=== PATIENT | male | born 1965 | race Caucasian/White ===

== ENCOUNTER 2016-10-10 19:49 | Outpatient (CLI) | payer OTHER | END 2016-10-10 19:50 | disposition critical access hospital (66) | LOC: EMS 19:49 | PROVIDERS: ATTEND Surgery | DX: R51 Headache (principal); M54.2 Cervicalgia; S09.90XA Unspecified injury of head, initial encounter; W01.198A Fall on same level from slipping, tripping and stumbling with subsequent striking against other object, initial encounter; Y92.008 Other place in unspecified non-institutional (private) residence as the place of occurrence of the external cause | CPT/HCPCS: A0425; A0429 ==

== ENCOUNTER 2016-10-10 20:19 | Emergency (ER) | payer OTHER ==
--- NOTE | 2016-10-10 22:08 | CT Preliminary Report ---
Exam: CT Head W/O IMPRESSION: 1. Right parietal scalp hematoma. 2. Otherwise normal head CT. [facility] SITE ID: [id number]
--- NOTE | 2016-10-10 22:11 | CT Report ---
EXAM: CT HEAD EXAM DATE: 10/10/2016 09:51 PM. CLINICAL HISTORY: Head injury. COMPARISON: 06/25/2006. TECHNIQUE: Multiaxial CT images were obtained from the foramen magnum to the vertex. IV contrast: Non e. Reformats: Coronal. In accordance with CT protocol optimization, one or more of the following dose reduction techniques w ere utilized for this exam: automated exposure control, adjustment of mA and/or KV based on patient s ize, or use of iterative reconstructive technique. FINDINGS: Parenchyma: No intraparenchymal hemorrhage. There is a stable 6 mm low-density focus in left basal ga nglia region, likely a dilated perivascular space. No evidence of mass, midline shift, or CT findings of infarction. Marcelino-white differentiation is distinct. Extraaxial Spaces: Normal for age. No subdural or epidural collections identified. Ventricles: Normal in size and position. Sinuses: Imaged paranasal sinuses, orbits, and mastoids show no significant abnormality. Bones: No evidence of fracture or calvarial defect. Other: There is a right parietal scalp hematoma.. IMPRESSION: 1. Right parietal scalp hematoma. 2. Otherwise normal head CT. [facility] Referring Provider Line: [phone] SITE ID: [id number]
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
[2016-10-10 22:30] VITALS: BP 139/92
[2016-10-10] MEDS ORDERED: LIDOCAINE 2%-EPI 1:100000 20 ML MDV ONE (22:33)
== END 2016-10-10 22:53 | disposition home or self-care (01) ==
LOC: EDUNIT# → ED 20:19
DX: S01.01XA Laceration without foreign body of scalp, initial encounter (principal); W03.XXXA Other fall on same level due to collision with another person, initial encounter; Y92.019 Unspecified place in single-family (private) house as the place of occurrence of the external cause; I10 Essential (primary) hypertension; Z86.73 Personal history of transient ischemic attack (TIA), and cerebral infarction without residual deficits; Z87.820 Personal history of traumatic brain injury; Z87.442 Personal history of urinary calculi; K21.9 Gastro-esophageal reflux disease without esophagitis
CPT/HCPCS: 12002; 70450; 99283; 99284

== ENCOUNTER 2019-08-04 08:27 | Outpatient (CLI) | payer OTHER ==
[2019-08-04] MEDS ORDERED: BUFFERED LIDOCAINE 10 ML SYRINGE ONE (08:35)
[2019-08-04] MEDS ORDERED: GADOBUTROL 7.5 MMOL/7.5 ML VIAL ONE (08:36)
[2019-08-04] MEDS ORDERED: iohexoL-240 10 ML VIAL IVP ONE (09:48)
[2019-08-04] MEDS ORDERED: GADOBUTROL 7.5 MMOL/7.5 ML VIAL IVP ONE (09:49)
[2019-08-04] MEDS ORDERED: BUFFERED LIDOCAINE 10 ML SYRINGE IU ONE (09:50)
--- NOTE | 2019-08-04 10:21 | XRAY Report ---
Reason: RIGHT SHOULDER PAIN Procedure Date: 08/04/2019 Accession Number: [id number] / [id number] Procedure: FL - Arthrogram Needle Placement CPT Code: Final Report FULL RESULT: PROCEDURE: Arthrogram Needle Placement INDICATIONS: RIGHT SHOULDER PAIN TECHNIQUE: After obtaining informed consent the right anterior shoulder joint was prepared and draped in sterile fashion and anesthetized with 1% lidocaine. Utilizing fluoroscopic guidance a 22-gauge needle was advanced into the shoulder joint space, positioning was confirmed with iodinated nonionic contrast, and a dilute gadolinium/saline solution was instilled. COMPARISON: None. FINDINGS: Successful shoulder joint injection for MR arthrography. IMPRESSION: Appropriate needle tip localization, confirmation of intra-articular injection, and completion of the study with a dilute gadolinium/saline intra-articular injection. Reviewed by: Yann Diaz MD on 08/04/2019 10:20 AM PDT Approved by: Yann Diaz MD on 08/04/2019 10:20 AM PDT Station ID: [id number]
--- NOTE | 2019-08-04 14:15 | MRI Report ---
PROCEDURE: Arthrogram Shoulder RT INDICATIONS: RIGHT SHOULDER PAIN CONTRAST: 12 mL of diluted intra-articular gadolinium contrast. TECHNIQUE: After the administration of 12 mL of dilute intra-articular Gadolinium contrast, oblique coronal T1 a nd T2 spin echo with fat saturation, oblique sagittal T1 spin echo with and without fat saturation, o blique sagittal T2 fast spin echo with fat saturation, axial T1 spin echo with fat saturation through the shoulder. COMPARISON: None. FINDINGS: Image quality: Diagnostic. Patient motion is noted during the study.. Rotator cuff: The there is tendinosis and low to moderate grade articular and bursal surface partial -thickness tear involving distal supraspinatus and infraspinatus at their insertions on greater tuber osity extending to musculotendinous junction. No full-thickness rotator cuff tendon rupture. Distal s ubscapularis tendon is intact. Mild supraspinatus muscle atrophy on sagittal images. Bones and bursae: No bone marrow contusions or fractures. Cyhg-mh-[id number] acromioclavicular joint a nd glenohumeral joint osteoarthritic changes are seen. Capsule and soft tissues: There is signal abnormality and contrast extension and posterior labrum ext ending from 8 to 11:00 position concerning for posterior labral tear. The glenohumeral ligaments appe ar intact. The long head of the biceps tendon demonstrates normal location and morphology. The rota tor interval appears normal, without fibrosis. The coracohumeral ligament is of normal thickness. N o intra-articular bodies. IMPRESSION: 1. Tendinosis and moderate grade articular and bursal surface partial-thickness tear involving distal supraspinatus and infraspinatus. Mild supraspinatus muscle atrophy. 2. Mild to moderate acromioclavicular joint and glenohumeral joint osteoarthritis. 3. Suggestion of posterior labral tear extending from 8 11:00 position. Reviewed by: Antonio Pathak MD on 08/04/2019 2:13 PM PDT Approved by: Antonio Pathak MD on 08/04/2019 2:13 PM PDT Station ID: [id number]
== END 2019-08-04 08:28 | disposition home or self-care (01) ==
LOC: DI 08:27
PROVIDERS: ATTEND Family Medicine
DX: S46.011A Strain of muscle(s) and tendon(s) of the rotator cuff of right shoulder, initial encounter (principal); M25.811 Other specified joint disorders, right shoulder; M19.011 Primary osteoarthritis, right shoulder
CPT/HCPCS: 23350; 73222; 77002; A9585

== ENCOUNTER 2020-01-04 09:47 | Outpatient (CLI) | payer OTHER | END 2020-01-04 09:48 | disposition critical access hospital (66) | LOC: EMS 09:47 | PROVIDERS: ATTEND Surgery | DX: R40.4 Transient alteration of awareness (principal); R51.9 Headache, unspecified; R20.0 Anesthesia of skin | CPT/HCPCS: A0425; A0433 ==

== ENCOUNTER 2020-01-04 10:12 | Inpatient (IN) | payer OTHER ==
[2020-01-04] MEDS ORDERED: FENTANYL IV STA (10:21)
[2020-01-04] MEDS ORDERED: SODIUM CHLORIDE 0.9% IV STA (10:21)
[2020-01-04] MEDS ORDERED: IOVERSOL 320 100 ML VIAL IVP ONE ×2 (10:30→13:22)
--- NOTE | 2020-01-04 10:48 | XRAY Report ---
PROCEDURE: Chest for Line Placement INDICATIONS: CHEST PAIN/ NG AND OG TUBE PLACEMENT TECHNIQUE: One view of the chest was acquired. COMPARISON: None FINDINGS: Surgical changes and devices: Nasogastric tube is present with distal tip projecting below the hemidi aphragms. Lungs and pleura: No pleural effusions or pneumothorax. Lungs are clear. Mediastinum: Mediastinal contours appear normal. Heart size is mildly prominent. Bones and chest wall: No suspicious bony lesions. Overlying soft tissues appear unremarkable. IMPRESSION: Nasogastric tube placement as above. Reviewed by: Janeth Venegas MD on 01/04/2020 9:47 AM [facility] Approved by: Janeth Venegas MD on 01/04/2020 9:47 AM [facility] Station ID: [id number]
--- NOTE | 2020-01-04 10:49 | ED Physician Documentation ---
History of Present Illness - Stated complaint Stated Complaint: ALOC - Chief complaint Chief Complaint: Neuro - History obtained from History obtained from: Patient - Additonal information Additional information: 54-year-old man with past medical history of high blood pressure, TBI with 8 concussions in the past, bipolar disorder on Abilify Adderall Lamictal, no history of seizure disorder presents with [place] [employer] [place] EMS to be called. On arrival on scene EMS stated that he had rapid deterioration in mental status requiring intubation. Fingerstick normal in the field. In the ED patient is intubated with vecuronium on board. Collateral information from and EMS.Further history limited by patient acuity Review of Systems Unable to obtain: Unresponsive PD PAST MEDICAL HISTORY - Past Medical History Cardiovascular: Hypertension Respiratory: None Endocrine/Autoimmune: None GI: GERD : Kidney stones HEENT: None Psych: Depression Musculoskeletal: None Derm: None - Past Surgical History Past Surgical History: Yes - Present Medications Home Medications: Ambulatory Orders Medication Instructions Recorded Confirmed Alfuzosin HCl [Alfuzosin HCl ER] 10 mg PO DAILY 10/10/16 01/04/20 Dextroamphetamine/Amphetamine 1 tab PO DAILY 10/10/16 01/04/20 [Adderall 30 mg Tablet] Omeprazole [PriLOSEC] 40 mg PO QDAC 10/10/16 01/04/20 Eszopiclone [Lunesta] 3 mg PO QPM PRN 01/04/20 01/04/20 Oxybutynin Chloride [Ditropan Xl] 5 mg PO DAILY 01/04/20 01/04/20 Propranolol ER [Inderal LA] 80 mg PO DAILY 01/04/20 01/04/20 - Allergies Allergies/Adverse Reactions: Allergies Allergy/AdvReac Type Severity Reaction Status Date / Time No Known Drug Allergies Allergy Verified 10/10/16 20:28 - Social History Does the pt smoke?: No Smoking Status: Never smoker Does the pt drink ETOH?: No Does the pt have substance abuse?: No - Immunizations Immunizations are current?: Yes - POLST Patient has POLST: No PD ED PE NORMAL - Vitals Vital signs reviewed: Yes - General General: Other (intubated, sedated, paralyzed) - HEENT HEENT: Atraumatic, PERRL, EOMI - Neck Neck: Supple, no meningeal sign, No JVD - Cardiac Cardiac: RRR - Abdomen Abdomen: Non tender, Non distended - Male Male : Other (damian in place) - Rectal Rectal: Other (normal TOÑO) - Back Back: No spinal TTP - Derm Derm: Normal color, Warm and dry - Extremities Extremities: No deformity - Neuro Neuro: Other (intubated, sedated, paralyzed) - Psych Psych: Other (intubated) Results - Vitals Vitals: Vital Signs - 24 hr 01/04/20 01/04/20 01/04/20 10:13 10:19 10:30 Temperature 36.3 C L 36.4 C L Heart Rate 64 61 59 L Respiratory 18 20 13 Rate Blood Pressure 153/130 H 153/130 H O2 Saturation 100 100 100 01/04/20 01/04/20 01/04/20 11:09 11:29 11:32 Temperature 36.9 C 36.9 C 36.9 C Heart Rate 62 61 77 Respiratory 18 19 18 Rate Blood Pressure 171/100 H 170/102 H 192/96 H O2 Saturation 100 100 93 01/04/20 01/04/20 11:45 11:57 Temperature 36.8 C Heart Rate 74 73 Respiratory 18 18 Rate Blood Pressure 165/98 H 150/98 H O2 Saturation 91 L 92 Oxygen O2 Source Mechanical ventilator - EKG (time done) 1015 Rate: Rate (enter#) (60) Rhythm: NSR [place]: Normal Intervals: Prolonged IN, 1st degree AVB QRS: Normal Ischemia: Normal ST segments - Labs Labs: Laboratory Tests 01/04/20 01/04/20 01/04/20 10:28 11:03 11:14 WBC 8.4 RBC 4.89 Hgb 13.8 L Hct 42.7 MCV 87.3 MCH 28.2 MCHC 32.3 RDW 13.2 Plt Count 312 MPV 9.7 Neut # (Auto) 6.0 Lymph # (Auto) 1.5 [place] # (Auto) 0.7 Eos # (Auto) 0.2 Baso # (Auto) 0.0 Absolute Nucleated RBC 0.00 Nucleated RBC % 0.0 Bld Gas Analysis Time 1108 Sample Site LEFT RADIAL ABG pH 7.36 ABG pCO2 40 ABG pO2 254 H* ABG HCO3 22.1 ABG Total CO2 23.4 ABG O2 Saturation 100 H ABG Base Excess -3.0 L Dejon Test POSITIVE Respiration Rate 18 O2 Delivery Device VENTILATOR Vent Mode SIMV FiO2 100.00 Tidal Volume 500 PEEP 5 Pressure Support Vent 12 Sodium Potassium Chloride Carbon Dioxide Anion Gap BUN Creatinine Estimated GFR (MDRD) Glucose Calcium Total Bilirubin AST ALT Alkaline Phosphatase Troponin I High Sens Total Protein Albumin Globulin Albumin/Globulin Ratio Lipase TSH Nasal Adenovirus (PCR) Nasal B. parapertussis DNA (PCR) Nasal Coronavir 229E PCR Nasal Coronavir HKU1 PCR Nasal Coronavir NL63 PCR Nasal Coronavir OC43 PCR Nasal Enterovir/Rhinovir PCR Nasal Influenza B PCR Nasal Influenza A PCR Nasal Parainfluen 1 PCR Nasal Parainfluen 2 PCR Nasal Parainfluen 3 PCR Nasal Parainfluen 4 PCR Nasal RSV (PCR) Nasal B.pertussis DNA PCR Nasal C.pneumoniae (PCR) Enzo Human Metapneumo PCR Nasal M.pneumoniae (PCR) Nasal SARS-CoV-2 (PCR) Salicylates Urine Opiates Screen NEGATIVE Ur Oxycodone Screen NEGATIVE Urine Methadone Screen NEGATIVE Ur Propoxyphene Screen NEGATIVE Acetaminophen Ur Barbiturates Screen NEGATIVE Ur Tricyclics Screen NEGATIVE Ur Phencyclidine Scrn NEGATIVE Ur Amphetamine Screen NEGATIVE U Methamphetamines Scrn NEGATIVE U Benzodiazepines Scrn NEGATIVE Urine Cocaine Screen NEGATIVE U Cannabinoids Screen NEGATIVE Ethyl Alcohol 01/04/20 01/04/20 01/04/20 11:14 11:14 11:14 WBC RBC Hgb Hct MCV MCH MCHC RDW Plt Count MPV Neut # (Auto) Lymph # (Auto) [place] # (Auto) Eos # (Auto) Baso # (Auto) Absolute Nucleated RBC Nucleated RBC % Bld Gas Analysis Time Sample Site ABG pH ABG pCO2 ABG pO2 ABG HCO3 ABG Total CO2 ABG O2 Saturation ABG Base Excess Dejon Test Respiration Rate O2 Delivery Device Vent Mode FiO2 Tidal Volume PEEP Pressure Support Vent Sodium 135 Potassium 4.9 Chloride 104 Carbon Dioxide 21 Anion Gap 10.0 BUN 15 Creatinine 0.9 Estimated GFR (MDRD) 88 L Glucose 118 H Calcium 8.6 Total Bilirubin 0.8 AST 18 ALT 16 Alkaline Phosphatase 67 Troponin I High Sens 8.2 Total Protein 7.1 Albumin 3.7 Globulin 3.4 Albumin/Globulin Ratio 1.1 Lipase 40 TSH Nasal Adenovirus (PCR) Nasal B. parapertussis DNA (PCR) Nasal Coronavir 229E PCR Nasal Coronavir HKU1 PCR Nasal Coronavir NL63 PCR Nasal Coronavir OC43 PCR Nasal Enterovir/Rhinovir PCR Nasal Influenza B PCR Nasal Influenza A PCR Nasal Parainfluen 1 PCR Nasal Parainfluen 2 PCR Nasal Parainfluen 3 PCR Nasal Parainfluen 4 PCR Nasal RSV (PCR) Nasal B.pertussis DNA PCR Nasal C.pneumoniae (PCR) Enzo Human Metapneumo PCR Nasal M.pneumoniae (PCR) Nasal SARS-CoV-2 (PCR) Salicylates < 6.0 Urine Opiates Screen Ur Oxycodone Screen Urine Methadone Screen Ur Propoxyphene Screen Acetaminophen < 10 L Ur Barbiturates Screen Ur Tricyclics Screen Ur Phencyclidine Scrn Ur Amphetamine Screen U Methamphetamines Scrn U Benzodiazepines Scrn Urine Cocaine Screen U Cannabinoids Screen Ethyl Alcohol 6.4 01/04/20 01/04/20 11:14 11:30 WBC RBC Hgb Hct MCV MCH MCHC RDW Plt Count MPV Neut # (Auto) Lymph # (Auto) [place] # (Auto) Eos # (Auto) Baso # (Auto) Absolute Nucleated RBC Nucleated RBC % Bld Gas Analysis Time Sample Site ABG pH ABG pCO2 ABG pO2 ABG HCO3 ABG Total CO2 ABG O2 Saturation ABG Base Excess Dejon Test Respiration Rate O2 Delivery Device Vent Mode FiO2 Tidal Volume PEEP Pressure Support Vent Sodium Potassium Chloride Carbon Dioxide Anion Gap BUN Creatinine Estimated GFR (MDRD) Glucose Calcium Total Bilirubin AST ALT Alkaline Phosphatase Troponin I High Sens Total Protein Albumin Globulin Albumin/Globulin Ratio Lipase TSH 3.85 Nasal Adenovirus (PCR) NOT DETECTED Nasal B. parapertussis DNA (PCR) NOT DETECTED Nasal Coronavir 229E PCR NOT DETECTED Nasal Coronavir HKU1 PCR NOT DETECTED Nasal Coronavir NL63 PCR NOT DETECTED Nasal Coronavir OC43 PCR NOT DETECTED Nasal Enterovir/Rhinovir PCR NOT DETECTED Nasal Influenza B PCR NOT DETECTED Nasal Influenza A PCR NOT DETECTED Nasal Parainfluen 1 PCR NOT DETECTED Nasal Parainfluen 2 PCR NOT DETECTED Nasal Parainfluen 3 PCR NOT DETECTED Nasal Parainfluen 4 PCR NOT DETECTED Nasal RSV (PCR) NOT DETECTED Nasal B.pertussis DNA PCR NOT DETECTED Nasal C.pneumoniae (PCR) NOT DETECTED Enzo Human Metapneumo PCR NOT DETECTED Nasal M.pneumoniae (PCR) NOT DETECTED Nasal SARS-CoV-2 (PCR) NOT DETECTED Salicylates Urine Opiates Screen Ur Oxycodone Screen Urine Methadone Screen Ur Propoxyphene Screen Acetaminophen Ur Barbiturates Screen Ur Tricyclics Screen Ur Phencyclidine Scrn Ur Amphetamine Screen U Methamphetamines Scrn U Benzodiazepines Scrn Urine Cocaine Screen U Cannabinoids Screen Ethyl Alcohol PD MEDICAL DECISION MAKING - ED course Complexity details: reviewed results, re-evaluated patient, d/w family ED course: 54-year-old man with past medical history of bipolar disorder presented with acute episode of dizziness with altered mental status requiring intubation by EMS for acute respiratory failure. Patient stable in the ED Without apparent source of acute loss of consciousness. No PE on CT, no head bleed. Will admit to ICU for further evaluation. - Critical Care Time(min): 30 Comments: I have personally performed a history, physical exam, and my own medical decision making. Upon my evaluation, this patient had a high probability of imminent or life- threatening deterioration due to respiratory failure, which required my direct attention, intervention, and personal management. I have personally provided 30 minutes of critical care time exclusive of time spent on separately billable procedures. Time includes review of laboratory data, radiology results, discussion with consultants, and monitoring for potential decompensation. Interventions were performed as documented above. 01/04/20 8:20pm Time Includes: Direct patient care, Review records, Reassess patient, Coordinate care, Medical consult, Family consult for tx dec Data interpretation: Labs, Pulse ox, CXR Departure - Departure Disposition: 66 [facility] DC/Xfer Clinical Impression: Dizziness, Numbness, Respiratory failure Condition: Stable Discharge Date/Time: 01/04/20 12:45
[2020-01-04] MEDS ORDERED: fentaNYL 2,500 MCG/250 ML 2,500 MCG/250 ML BAG IV SCH ×2 (11:00→11:09)
--- NOTE | 2020-01-04 11:05 | CT Report ---
PROCEDURE: HEAD WO INDICATIONS: acute AMS TECHNIQUE: Noncontrast 4.5 mm thick angled axial sections acquired from the foramen magnum to the vertex. For r adiation dose reduction, the following was used: automated exposure control, adjustment of mA and/or kV according to patient size. COMPARISON: None. FINDINGS: Image quality: Excellent. CSF spaces: Basal cisterns are patent. No extra-axial fluid collections. Ventricles are normal in size and shape. Brain: No midline shift. No intracranial masses or hemorrhage. Marcelino-white matter interface is norm al. Skull and face: Calvarium and visualized facial bones are intact, without suspicious lesions. Sinuses: Visualized sinuses and mastoids are clear. There is swelling of the nasal turbinates with significant obliteration of the nasal passages. IMPRESSION: 1. Diffuse swelling of the nasal turbinates results in significant obliteration of the nasal passages . 2. Unremarkable brain parenchyma. No evidence of acute stroke, hemorrhage, or mass. Reviewed by: Anibal Velazquez MD on 01/04/2020 11:04 AM [facility] Approved by: Anibal Velazquez MD on 01/04/2020 11:04 AM PST Station ID: [id number]
--- NOTE | 2020-01-04 11:14 | CT Report ---
PROCEDURE: ANGIO CHEST W/WO INDICATIONS: r/o PE CONTRAST: IV CONTRAST: Optiray 320 ml: 100 PO CONTRAST: *NO PO CONTRAST TECHNIQUE: After the administration of intravenous contrast, 2 mm thick sections acquired from the pulmonary api yazmin to the posterior costophrenic angles. 3-dimensional maximum intensity projection (MIP) coronal a nd sagittal reformats were then acquired through the thorax. For radiation dose reduction, the follow ing was used: automated exposure control, adjustment of mA and/or kV according to patient size. COMPARISON: None FINDINGS: Image quality: Excellent. Pulmonary arteries: Pulmonary arteries are normal in size, and demonstrate no intraluminal filling d efects to suggest central pulmonary embolism. Lungs and pleura: Patchy, mild left basilar opacity is present, slightly less prominent on the right base. No pleural effusions or pneumothorax. Central and peripheral airways are patent. Mediastinum: Heart size is normal, without pericardial effusion. No mediastinal or hilar adenopathy . Thoracic aorta is normal in caliber and enhancement. Esophagus is normal in caliber, without hiat al hernia. Endotracheal and nasogastric tubes are present. Bones and chest wall: No suspicious bony lesions. Ribs and thoracic spine appear intact throughout. The thyroid is normal. No axillary or supraclavicular adenopathy. Abdomen: Nonobstructing right renal calcification. Otherwise, visualized upper abdominal solid orga ns appear normal in the early arterial phase of enhancement. IMPRESSION: 1. Bibasilar opacities, left greater than right. While this could represent dependent changes, deve loping pneumonia cannot be excluded. 2. No pulmonary embolism. Reviewed by: Janeth Venegas MD on 01/04/2020 10:12 AM [facility] Approved by: Janeth Venegas MD on 01/04/2020 10:12 AM [facility] Station ID: [id number]
[2020-01-04 11:16] LABS: BASOPHILS % (AUTO) 0.5 %; EOSINOPHILS # (AUTO) 0.2 10^3/uL (0.0-0.7); EOSINOPHILS % (AUTO) 1.8 %; HGB - HEMOGLOBIN 13.8 g/dL (14.0-18.0); LYMPHOCYTES # (AUTO) 1.5 10^3/uL (1.5-3.5); LYMPHOCYTES % (AUTO) 18.1 %; MEAN CORPUSCULAR HEMOGLOBIN 28.2 pg (27.0-31.0); MEAN CORPUSCULAR HGB CONC 32.3 g/dL (32.0-36.0); MEAN CORPUSCULAR VOLUME 87.3 fL (80.0-94.0); MEAN PLATELET VOLUME 9.7 fL (7.4-11.4); MONOCYTES # (AUTO) 0.7 10^3/uL (0.0-1.0); MONOCYTES % (AUTO) 8.1 %; NEUTROPHILS % (AUTO) 70.9 %; PLT - PLATELET COUNT 312 10^3/uL (130-450); RED BLOOD COUNT 4.89 10^6/uL (4.70-6.10); RED CELL DISTRIBUTION WIDTH 13.2 % (12.0-15.0); WHITE BLOOD COUNT 8.4 x10^3/uL (4.8-10.8)
[2020-01-04 11:16] LABS: ABG HCO3 22.1 mmol/L (22.0-26.0); ABG OXYGEN SATURATION 100 % (94-98); ABG PCO2 40 mmHg (34-45); ABG PH 7.36 (7.35-7.45); ABG TCO2 23.4 MMOL/L (21.0-29.0); ALLEN TEST POSITIVE
[2020-01-04 11:21] LABS: ABG PO2 254 mmHg (80-100)
[2020-01-04 11:39] LABS: ACETAMINOPHEN < 10 ug/mL (10-30); SALICYLATE < 6.0 mg/dL
--- NOTE | 2020-01-04 11:40 | CT Report ---
PROCEDURE: Abdomen/Pelvis W INDICATIONS: acute AMS/unresponsive CONTRAST: IV CONTRAST: Optiray 320 ml: 100 PO CONTRAST: *NO PO CONTRAST TECHNIQUE: After the administration of weight appropriate dose of intravenous contrast, 5 mm thick sections acqu ired from the diaphragms to the symphysis. 5 mm thick coronal and sagittal reformats were acquired. For radiation dose reduction, the following was used: automated exposure control, adjustment of mA and/or kV according to patient size. COMPARISON: None. FINDINGS: Image quality: Excellent. ABDOMEN: Lung bases: Patchy bibasilar atelectasis. Heart size is normal. Please see dedicated report of the c hest for further details. Solid organs: Liver and spleen are normal in size and late arterial phase enhancement. Gallbladder is unremarkable. Biliary system is non dilated. Pancreas enhances normally. No adrenal nodules. K idneys demonstrate normal size and enhancement, without hydronephrosis. Bilateral nonobstructing neph roliths measuring approximately 2 mm on the right and 6 cm on the left. Course and caliber of the geovani ateral ureters are unremarkable. Peritoneum and bowel: Nasogastric tube is in place with the distal tip noted within the distal gastr ic antrum. Bowel loops demonstrate normal wall thickness and caliber. No free fluid or air. Nodes and vessels: No retroperitoneal or mesenteric adenopathy by size criteria. Aorta and inferior vena cava are normal in size. Miscellaneous: No ventral hernias. PELVIS: Genitourinary: Urinary bladder is decompressed by a Cabezas catheter. Miscellaneous: No pelvic adenopathy. Small bilateral fat-containing inguinal hernias. Bones: No suspicious bony lesions. No acute vertebral body compression fractures. IMPRESSION: 1. CT abdomen and pelvis without acute abnormalities. 2. Nonobstructing bilateral nephrolithiasis. 3. Patchy bibasilar atelectasis which is better evaluated on dedicated CT of the chest. Please see se parate report for further details. 4. Other chronic findings as above. Reviewed by: Denilson Walhs MD on 01/04/2020 11:39 AM PST Approved by: Denilson Walsh MD on 01/04/2020 11:39 AM PST Station ID: [id number]
[2020-01-04 11:42] LABS: MUDS CUTOFF CONCENTRATIONS CUTOFF CONC BELOW:
[2020-01-04 11:46] LABS: ALBUMIN 3.7 g/dL (3.2-5.5); ALBUMIN/GLOBULIN RATIO 1.1 (1.0-2.2); BILIRUBIN,TOTAL 0.8 mg/dL (0.2-1.0); CALCIUM 8.6 mg/dL (8.5-10.3); CREATININE 0.9 mg/dL (0.6-1.2); TOTAL PROTEIN 7.1 g/dL (6.7-8.2)
[2020-01-04 11:58] LABS: AMPHETAMINE SCREEN,URINE NEGATIVE (NEGATIVE); BENZODIAZEPINES SCREEN, URINE NEGATIVE (NEGATIVE); COCAINE SCREEN URINE NEGATIVE (NEGATIVE); METHADONE SCREEN, URINE NEGATIVE (NEGATIVE); METHAMPHETAMINES SCREEN, URINE NEGATIVE (NEGATIVE); OPIATE SCREEN, URINE NEGATIVE (NEGATIVE); OXYCODONE SCREEN, URINE NEGATIVE (NEGATIVE); PROPOXYPHENE SCREEN, URINE NEGATIVE (NEGATIVE); TRICYCLIC ANTIDEPRESSANT,URINE NEGATIVE (NEGATIVE)
[2020-01-04] MEDS ORDERED: MIDAZOLAM DRIP 50 MG/100 ML BAG IV SCH (12:00)
[2020-01-04] MEDS ORDERED: SODIUM CHLORIDE FLUSH 0.9% 10 ML SYRINGE IVP PRN (12:09)
[2020-01-04 12:32] LABS: C. PNEUMONIAE- RESP PCR PANEL NOT DETECTED
--- NOTE | 2020-01-04 12:35 | HISTORY & PHYSICAL EXAMINATION ---
Chief Complaint - Chief Complaint Chief Complaint: Numbness History of Present Illness - Admitted From Admitted From:: Home - History Obtained From Records Reviewed: Yes History obtained from: ER Physician, EMR Exam Limitations: Patient is intubated. - History of Present Illness HPI Comment/Other: This is a 54-year-old male with a past medical history significant for hypertension, bipolar disorder, traumatic brain injury who presents today after he was reportedly complaining of sudden onset dizziness and numbness while at work. This occurred this morning at the [facility] and EMS was immediately called. Reportedly, the patient rapidly deteriorated and he was intubated for airway protection. There is reportedly no prior history of seizures. He reportedly told EMS prior to intubation he felt numb all over and that he arrived to work with a headache and confusion which progressed while he was at work. There was also reported history that the patient complained of chest pain to his last night. In the emergency department, he had basic labs obtained which are unremarkable including troponin. Imaging including CT head, CT of the chest, abdomen and pelvis did not reveal any acute abnormalities. There was a note of bibasilar opacities left greater than right which could represent dependent changes al though pneumonia cannot be excluded. Given the patient remained intubated while on the emergency department, medicine was consulted for admission. History - Past Medical History Cardiovascular: reports: Hypertension Respiratory: reports: None Endocrine/Autoimmune: reports: None GI: reports: GERD : reports: Kidney stones HEENT: reports: None Psych: reports: Depression Musculoskeletal: reports: None Derm: reports: None - Family & Social History Family History Comment/Other: Unable to obtain as patient is intubated. Social History Notes: Unable to obtain as patient is intubated. - POLST Patient has POLST: No Meds/Allgy - Home Medications Home Medications: Ambulatory Orders Medication Instructions Recorded Confirmed Alfuzosin HCl [Alfuzosin HCl ER] 10 mg PO DAILY 10/10/16 01/04/20 Dextroamphetamine/Amphetamine 1 tab PO DAILY 10/10/16 01/04/20 [Adderall 30 mg Tablet] Omeprazole [PriLOSEC] 40 mg PO QDAC 10/10/16 01/04/20 Eszopiclone [Lunesta] 3 mg PO QPM PRN 01/04/20 01/04/20 Oxybutynin Chloride [Ditropan Xl] 5 mg PO DAILY 01/04/20 01/04/20 Propranolol ER [Inderal LA] 80 mg PO DAILY 01/04/20 01/04/20 - Allergies Allergies/Adverse Reactions: Allergies Allergy/AdvReac Type Severity Reaction Status Date / Time No Known Drug Allergies Allergy Verified 10/10/16 20:28 Review of Systems - All Other Systems All Other Systems: reports: Other (Unable to obtain as patient is intubated.) Prior Level of Functionality: He is reportedly independent with ADLs. Exam - Vital Signs Reviewed Vital Signs: Yes Vital Signs: Vital Signs x48h Temp Pulse Resp BP Pulse Ox 01/04/20 12:30 36.4 C L 82 18 142/93 H 92 01/04/20 12:23 36.4 C L 79 15 148/98 H 94 01/04/20 12:21 36.4 C L 77 16 149/98 H 93 01/04/20 11:57 36.8 C 73 18 150/98 H 92 01/04/20 11:45 74 18 165/98 H 91 L 01/04/20 11:32 36.9 C 77 18 192/96 H 93 01/04/20 11:29 36.9 C 61 19 170/102 H 100 01/04/20 11:09 36.9 C 62 18 171/100 H 100 01/04/20 10:30 36.4 C L 59 L 13 153/130 H 100 01/04/20 10:19 36.3 C L 61 20 153/130 H 100 01/04/20 10:13 64 18 100 - Physical Exam General Appearance: positive: Other (He is sedated on Versed will open his eyes when stimulated) Eyes Bilateral: positive: PERRL, Conjunctivae nml, Other (Pupils are constricted and reactive to light.) ENT: positive: Other (ET tube in place.) Neck: positive: Nml inspection Respiratory: positive: No respiratory distress. negative: Wheezes, Rales Cardiovascular: positive: Regular rate & rhythm, No murmur. negative: Tachycardia Abdomen: positive: No distention. negative: Non-tender, Tenderness, Guarding, Rebound Skin: positive: Warm, Dry Extremities: positive: No pedal edema Neurologic/Psychiatric: positive: Other (He is sedated so neuro exam is limited. He does open his eyes when spoken to.) Conclusion/Plan - Problem List (1) On mechanically assisted ventilation Conclusion/Plan: Intubated for airway protection.CT of the chest does not reveal any obvious pneumonia. Do not suspect the bibasilar opacities are pneumonia given lack of white count, fever. His vent settings are minimal. We will look to wean his sedation his afternoon and hope to extubate this afternoon. (2) Dizziness Conclusion/Plan: He reportedly complained of dizziness and numbness prior to his rapid deterioration that required intubation. The etiology is not clear at this time. CT head does not show any acute abnormalities. His labs are unremarkable. Urine toxicology is unremarkable as well as serum salicylate, acetaminophen. Will need to obtain further information once he is extubated to see if he may have had a seizure. Will consider MRI of the brain. We will attempt to obtain collateral information from family. (3) History of traumatic brain injury Conclusion/Plan: There is reported history of traumatic brain injury. Unclear if is a history of seizures or not. CT of the head was unremarkable. - Lab Results Lab results reviewed: Yes Fish Bones: 01/04/20 11:14 01/04/20 11:14 - Diagnostic Imaging Results Diagnostic Imaging Results: positive: Final report reviewed - EKG Results EKG Interpreted Independently: Yes EKG Findings: EKG shows a sinus rhythm without any ischemic changes. ME interval is borderline at 195. QTc is 470. Core Measures - Anticipated LOS I expect patient to be DC'd or transferred within 96 hours.: Yes - Issues Hospital Issues and Management Plan: 54-year-old male with a past no history for traumatic brain injury, concussions presents after complaining of dizziness at work. Reportedly rapidly deteriorated upon EMS arrival and was intubated for airway protection. We will admit for further work-up. - DVT/VTE - Prophylaxis VTE/DVT Device ordered at admit?: Yes VTE/DVT Prophylaxis med ordered at admit?: Yes
--- NOTE | 2020-01-04 14:19 | PHARMACY PROGRESS NOTE ---
- Best Possible Medication History Admit Date and Time: 01/04/20 1209 Processed by: Pharmacy Medication History completed: Yes Patient Interview: Pt unable to participate Secondary Source(s): Pharmacy records, Insurance records As the person ultimately responsible for medication therapy, providers are able to order a medication from an existing home medication list in [facility] via the "Reconcile Routine" prior to Confirmation of that medication by customer support assistant. Such practice is discouraged except when the physician, in their clinical judgment, deems that a medical need exists for a medication without regard to previous use.
[2020-01-04] MEDS: SODIUM CHLORIDE FLUSH 0.9% 10 ML SYRINGE IVP SCH (16:18)
[2020-01-04] MEDS: ACETAMINOPHEN 325 MG TABLET PO PRN (20:52)
[2020-01-05] MEDS: ACETAMINOPHEN 325 MG TABLET PO PRN (03:45)
[2020-01-05] MEDS: SODIUM CHLORIDE FLUSH 0.9% 10 ML SYRINGE IVP SCH ×2 (03:48→08:29)
[2020-01-05 05:05] LABS: BASOPHILS % (AUTO) 0.5 %; EOSINOPHILS # (AUTO) 0.1 10^3/uL (0.0-0.7); EOSINOPHILS % (AUTO) 1.4 %; HGB - HEMOGLOBIN 12.6 g/dL (14.0-18.0); LYMPHOCYTES # (AUTO) 1.3 10^3/uL (1.5-3.5); LYMPHOCYTES % (AUTO) 17.3 %; MEAN CORPUSCULAR HEMOGLOBIN 27.9 pg (27.0-31.0); MEAN CORPUSCULAR VOLUME 87.2 fL (80.0-94.0); MEAN PLATELET VOLUME 9.6 fL (7.4-11.4); MONOCYTES # (AUTO) 0.6 10^3/uL (0.0-1.0); MONOCYTES % (AUTO) 7.3 %; NEUTROPHILS # (AUTO) 5.6 10^3/uL (1.5-6.6); NEUTROPHILS % (AUTO) 73.1 %; PLT - PLATELET COUNT 216 10^3/uL (130-450); RED BLOOD COUNT 4.52 10^6/uL (4.70-6.10); RED CELL DISTRIBUTION WIDTH 13.2 % (12.0-15.0); WHITE BLOOD COUNT 7.6 x10^3/uL (4.8-10.8)
[2020-01-05 05:18] LABS: CALCIUM 8.7 mg/dL (8.5-10.3); CREATININE 0.8 mg/dL (0.6-1.2); MAGNESIUM 2.1 mg/dL (1.7-2.8); PHOSPHORUS 3.2 mg/dL (2.5-4.6)
[2020-01-05] MEDS ORDERED: KETOROLAC 30 MG/ML VIAL IVP STA (08:50)
[2020-01-05] MEDS ORDERED: TAMSULOSIN 0.4 MG CAPSULE PO SCH (09:00)
[2020-01-05] MEDS ORDERED: PROPRANOLOL ER 80 MG CAPSULE PO SCH (09:00)
[2020-01-05] MEDS ORDERED: DULoxetine 30 MG CAPSULE PO SCH (09:00)
--- NOTE | 2020-01-05 12:02 | DISCHARGE SUMMARY ---
"Discharge Summary Admit Date: 01/04/20 Discharge Date: 01/05/20 Discharging Provider: Papa Tavarez Primary Care Provider: Michelle Robledo Code Status: Attempt Resuscitation Condition at Discharge: Stable Discharge Disposition: 01 Home, Self Care - DIAGNOSES Admission Diagnoses: On mechanically assisted ventilation Dizziness History of traumatic brain injury Discharge Diagnoses with Status of Each Condition: On mechanically assisted ventilation - resolved. Dizziness - resolved. Headache - resolved. Anxiety - stable. Depression - stable. BPH - stable. - HPI History of Present Illness: This is a 54-year-old male with a past medical history significant for hypertension, bipolar disorder, traumatic brain injury who presents today after he was reportedly complaining of sudden onset dizziness and numbness while at work. This occurred this morning at the [facility] and EMS was immediately called. Reportedly, the patient rapidly deteriorated and he was intubated for airway protection. There is reportedly no prior history of seizures. He reportedly told EMS prior to intubation he felt numb all over and that he arrived to work with a headache and confusion which progressed while he was at work. There was also reported history that the patient complained of chest pain to his last night. In the emergency department, he had basic labs obtained which are unremarkable including troponin. Imaging including CT head, CT of the chest, abdomen and pelvis did not reveal any acute abnormalities. There was a note of bibasilar opacities left greater than right which could represent dependent changes although pneumonia cannot be excluded. Given the patient remained intubated while on the emergency department, medicine was consulted for admission. - CONSULTS | PROCEDURES Procedures: CT of the head showed no evidence of stroke, hemorrhage, mass. There was swelling of the nasal turbinates causing significant aberration of the nasal passages. CTA of the chest showed bibasilar opacities left greater than right. This could represent dependent changes, developing pneumonia cannot be excluded. CT of the abdomen pelvis did not reveal any acute abnormalities. Nonobstructing bilateral nephrolithiasis. - HOSPITAL COURSE Hospital Course: He was admitted to the intensive care unit given he was intubated in the field. He was extubated shortly after arrival to the intensive care unit as he was following commands off of sedation and had minimal ventilator requirements. His labs remained unremarkable throughout his hospitalization including troponin. After extubation, the patient reports that he had some palpitations the morning of admission and while at work he just felt dizzy and numb all over and came on suddenly. He does not really recall what happened after that. He reports a remote history of seizure but there was no reported history of seizure from EMS. He complained of a headache the day following extubation. He was given Toradol with resolution of his headache. He was able to ambulate and felt back to his baseline. He had no focal deficits. He did have numbness of the right upper extremity which is chronic from shoulder injury. Reports being compliant with his medications. We discussed that we do not have a clear explanation for what caused his presentation yesterday and why he was intubated. I discussed with him regarding the possibility of obtaining MRI of the brain. I felt there was low suspicion for stroke as his presentation was not typical for this and he has no focal deficits on exam to suggest a stroke. He agreed with this and we both felt that MRI would not be warranted at this time. Given he was stable and felt back to his baseline, he was discharged home. He was asked to follow-up with his primary care provider. The patient was initially admitted under inpatient as he is expected to stay more than 2 midnights but given his rapid and unexpected improvement, he was discharged after 1 midnight. - ALLERGIES Allergies/Adverse Reactions: Allergies Allergy/AdvReac Type Severity Reaction Status Date / Time No Known Drug Allergies Allergy Verified 10/10/16 20:28 - MEDICATIONS Home Medications: Ambulatory Orders Medication Instructions Recorded Confirmed Alfuzosin HCl [Alfuzosin HCl ER] 10 mg PO QPM 10/10/16 01/05/20 Dextroamphetamine/Amphetamine 1 tab PO DAILY 10/10/16 01/04/20 [Adderall 30 mg Tablet] Omeprazole [PriLOSEC] 40 mg PO QPM 10/10/16 01/05/20 Eszopiclone [Lunesta] 3 mg PO QPM PRN 01/04/20 01/04/20 Oxybutynin Chloride [Ditropan Xl] 5 mg PO QPM 01/04/20 01/05/20 Propranolol ER [Inderal LA] 80 mg PO DAILY 01/04/20 01/04/20 DULoxetine [Cymbalta] 90 mg PO DAILY 01/05/20 01/05/20 lamoTRIgine [Lamictal] 400 mg PO QPM 01/05/20 01/05/20 - PHYSICAL EXAM AT DISCHARGE General Appearance: positive: No acute distress, Alert Eyes Bilateral: positive: Normal inspection, PERRL, Conjunctivae nml ENT: positive: ENT inspection nml Neck: positive: Nml inspection Respiratory: positive: No respiratory distress. negative: Wheezes, Rales Cardiovascular: positive: Regular rate & rhythm, No murmur. negative: Tachycardia, Bradycardia, Systolic murmur Abdomen: positive: Non-tender, No distention. negative: Tenderness Skin: positive: Warm, Dry Extremities: positive: Full ROM, No pedal edema Neurologic/Psychiatric: positive: Oriented x3, Motor nml, Sensation nml. negative: Disoriented to person, Disoriented to place, Sensory loss, Facial droop, Slurred/abnml speech - LABS Result Diagrams: 01/05/20 04:25 01/05/20 04:25 Other Lab Results: Laboratory Results - last 24 hr 01/05/20 01/05/20 01/05/20 04:25 04:25 09:23 WBC 7.6 RBC 4.52 L Hgb 12.6 L Hct 39.4 L MCV 87.2 MCH 27.9 MCHC 32.0 RDW 13.2 Plt Count 216 MPV 9.6 Neut # (Auto) 5.6 Lymph # (Auto) 1.3 L [place] # (Auto) 0.6 Eos # (Auto) 0.1 Baso # (Auto) 0.0 Absolute Nucleated RBC 0.00 Nucleated RBC % 0.0 Sodium 137 Potassium 3.8 Chloride 106 Carbon Dioxide 23 Anion Gap 8.0 BUN 14 Creatinine 0.8 Estimated GFR (MDRD) 100 Glucose 103 H Calcium 8.7 Phosphorus 3.2 Magnesium 2.1 Troponin I High Sens 8.1 - DIAGNOSTIC IMAGING Diagnostic Imaging Results: Final report reviewed - FOLLOW UP Follow Up: He was asked to follow-up with his primary care provider in 1 week. - TIME SPENT Time Spent in Discharge (Minutes): 31"
--- NOTE | 2020-01-05 12:02 | Discharge Plan ---
Discharge Plan Problem Reviewed?: Yes Disposition: Home, Self Care Condition: Stable Diet: Regular Activity Restrictions: Activity as Tolerated Shower Restrictions: No Health Concerns: You were seen in the hospital because you complained of dizziness yesterday at work. You are placed on a ventilator because you were unresponsive. It is not clear what caused this. The CAT scan of your head did not show any abnormalities. Your labs are normal. You may have had a headache which could have caused you to have the numbness and dizziness. You have no deficits on exam so we do not suspect that you had a stroke and so we did not do MRI of the brain. Plan of Treatment: There were no changes made to your medication. Care Goals: If you have similar symptoms please return to the emergency department immediately. Assessment: Patient expressed understanding of the treatment plan. Additional Instructions or Follow Up instructions: It is recommended that you follow-up with your primary care provider in 1 week. No Smoking: If you smoke, Please STOP! Call for help.
[2020-01-05 13:46] VITALS: BP 143/90
== END 2020-01-05 14:15 | disposition home or self-care (01) | DRG 189 ==
LOC: EDUNIT# → ED 10:12 → ICU 12:09
PROVIDERS: ADMIT Internal Medicine; ATTEND Internal Medicine
DX: J96.00 Acute respiratory failure, unspecified whether with hypoxia or hypercapnia (principal); R40.4 Transient alteration of awareness; R42 Dizziness and giddiness; R20.0 Anesthesia of skin; Z87.820 Personal history of traumatic brain injury; R51.9 Headache, unspecified; F41.9 Anxiety disorder, unspecified; I10 Essential (primary) hypertension; R91.8 Other nonspecific abnormal finding of lung field; Z20.828 Contact with and (suspected) exposure to other viral communicable diseases; R00.2 Palpitations; R07.9 Chest pain, unspecified; F31.9 Bipolar disorder, unspecified
CPT/HCPCS: 0202U; 36415; 36600; 51702; 70450; 71045; 71275; 74177; 80048; 80053; 80306; 80307; 80320; 80329; 82803; 83690; 83735; 84100; 84443; 84484; 85025; 87150; 93005; 94002; 96365; 96368; 99291; A9270; J3010; Q9967; 94770

== ENCOUNTER 2020-02-25 14:16 | Outpatient (CLI) | payer OTHER ==
[2020-02-25 15:03] VITALS: BP 155/93
--- NOTE | 2020-02-25 15:03 | SLEEP CARE CONSULTATION ---
Information from patient questionnaire entered by Selma Shahid. I have reviewed and concur with the information entered by Selma Shahid. This document represents the service I personally performed and the decisions made by me, Neena Cain ARNP. History of Present Illness Service Date and Time: 02/25/2020 1416 Reason for Visit: New patient, Previously diagnosed sleep apnea, Re-establish care Chief Complaint: reports: Unrefreshed sleep, Snoring, Excessive daytime sleepiness, Other (For CPAP equipment.). denies: Observed pauses in breathing (unsure) Date of Onset: N/A Usual bedtime: 7-9 PM Time it takes to fall asleep: 10-15 mins Snores at night: Yes Observed to quit breathing while asleep: Yes Sleeps alone due to snoring: Yes Number of times waking at night: 2-3 times Reasons for waking at night: reports: Pain, Bathroom. denies: Choking, Snoring, Gasping for air Toss, Turn, or Twitch while sleeping: Yes Recalls having dreams: Yes Usually gets out of bed at: 0500 - 0800 Feels refreshed in the morning: No Morning headache: Yes Sleepy or fatigued during the day: Yes Ever fallen asleep while driving: No Takes day naps: Yes (off days) Dreams during day naps: Yes Prior sleep studies: Yes Year and Where: 2013 [facility] Type of Sleep Study: Polysomnography Additional HPI information: PETE SHAHID was diagnosed to have severe, AHI 52.3, obstructive sleep apnea- hypopnea syndrome and returns to re-establish care today for his CPAP therapy. He hasn't been using his machine for the last 3 years. He had difficulty getting supplies from his DME, he moved which added to the issue and he also procrastinated getting back into re-establish care. - Parasomnia Symptoms Ever been unable to move upon waking from sleep: No Walks in sleep: No Talks in sleep: No Ever acted out dreams in sleep: No Ever felt weak in the knees when startled or emotional: No Bothered by creepy, crawly, restless sensations in legs: No Problems with memory or concentration: Yes Subjective On therapy, patient: reports: sleeping better, awakening more refreshed, being more awake and alert during the day, more rested overall, other (when using the CPAP machine) Initial [place] Sleepiness Scale score: 6 (in 2020 (11 in 2013)) Past Medical History Past Medical History: reports: Hypertension, Depression, Mood disorder, GERD, Attention deficit Social History The patient's occupation is . Patient is and lives in [place]. Have you smoked in the past 12 months: No Alcohol use: No Caffeine use: Yes Caffeine amount and frequency: 1-2 coffees (soda) Family History Family history of sleep disordered breathing: No Allergies and Home Medications Drug allergies reviewed: Yes (NKDA) Allergy and home medication list: Adderall XR 30 mg Lunesta 3 mg Propanolol 90 mg Omeprazole x 2 Oxybutinin 10 mg Alfuzosin (for kidney) Cymbalta 90 mg Tylenol 325 mg prn Motrin prn Valtorin gel prn (neck) Review of Systems Weight gain over past 5 years: 7 Weight loss over past 5 years: 22 Cardiovascular: reports: high blood pressure, leg or foot swelling Gastrointestinal: reports: heartburn Urinary: reports: frequency Neurological: reports: headaches, head trauma, gait or balance problems Psychiatric: reports: Attention Deficit Hyperactivity, depression Ear/Nose/Throat: reports: wisdom teeth removed Endocrine: reports: sluggishness (tired) Musculoskeletal: reports: joint pain, neck pain Immunologic: reports: itching Physical Exam Blood Pressure: 155/93 (hx htn) Cuff size: long Heart Rate: 79 O2 Saturation: 98 Height: 5 ft 7 in Weight: 227 lb Body Mass Index: 35.5 BMI Classification: Obese Impression and Plan 1. Obstructive Sleep Apnea-Hypopnea Syndrome, severe. He has not been on the CPAP therapy for the last 3 years. I discussed with the patient that we will have to re-verify his diagnosis and severity with a new sleep study before we can restart him on CPAP therapy. He voiced understanding and agreement. He does state that he has better sleep quality and is more rested overall when he has been using the CPAP machine. We will go ahead and order another sleep study for verification and followup with him after this is completed. Patient's apnea severity and rationale for treatment to reduce apnea, improve sleep quality and reduce cardiovascular and cerebrovascular events was reviewed. I also reviewed the benefit of consistent device use of CPAP for depression and anxiety. 2. Elevated blood pressure with a previous diagnosis of hypertension. His blood pressure was 155/93 upon measurement today. He states he is working with his doctor for his recent elevated blood pressures. He has been on medication for 10 years and is currently on propanalol. I advised him to continue to follow up with his physician for his blood pressure. He appeared stable today with no complaints of shortness of breath or chest pain. * Schedule polysomnography/HST and return in 1-2 weeks after the study to discuss result and initiate therapy. * Follow up with PCP on elevated blood pressure * Avoid long distance driving or driving when feeling sleepy. * Avoid sedative and muscle relaxant around bedtime. * Attempt to lose weight. * Review instructions provided by trained office staff on how to prepare for the sleep study. * Return for follow-up after sleep study completed. Counseling Topics: Weight loss health impact Visit Type: In Office Time Spent with Patient (minutes): 30 Provider Statement: I spent 100% of the Face to Face Visit with the patient with greater than 50% spent counseling the patient and coordination of care.
== END 2020-02-25 14:17 | disposition home or self-care (01) ==
LOC: SC 14:16
PROVIDERS: ATTEND Nurse Practitioner Family
DX: G47.33 Obstructive sleep apnea (adult) (pediatric) (principal); I10 Essential (primary) hypertension; E66.9 Obesity, unspecified; Z68.35 Body mass index [BMI] 35.0-35.9, adult
CPT/HCPCS: 99203; 99212

== ENCOUNTER 2020-07-04 16:06 | Outpatient (CLI) | payer OTHER | END 2020-07-04 16:07 | disposition home or self-care (01) | LOC: COV 16:06 | PROVIDERS: ATTEND Nurse Practitioner Family | DX: Z01.812 Encounter for preprocedural laboratory examination (principal); Z20.822 Contact with and (suspected) exposure to COVID-19 ==

== ENCOUNTER 2020-08-08 14:48 | Outpatient (CLI) | payer OTHER ==
--- NOTE | 2020-08-08 15:05 | SLEEP CARE CONSULTATION ---
Information from patient questionnaire entered by Jojo Sweeney. I have reviewed and concur with the information entered by Jojo Sweeney. This document represents the service I personally performed and the decisions made by , Neena Cain ARNP. History of Present Illness Service Date and Time: 08/08/2020 1448 Initial [place] Sleepiness Scale score: 6 (in 2020 (11 in 2013)) Current [place] Sleepiness Scale score: 9 Additional HPI information: PETE VELA returns for follow up and results of the recently performed polysomnography. I explained the pathophysiology behind obstructive sleep apnea. We then spent quite a bit of time discussing different treatment options. For mild obstructive sleep apnea, surgery and oral appliance are alternatives to nasal CPAP therapy but in moderate or severe cases, nasal CPAP is the most effective and reliable treatment. I reviewed the impact of weight changes on sleep apnea and strongly recommended losing weight. After some discussion, the patient opted to go with the nasal CPAP therapy. Nasal autoCPAP set at 4-20 cmH20 will be ordered with rationale explained. A manual titration study will be ordered if unable to find optimal pressure with office adjustments. I explained how CPAP machine works with sample devices [employer] and [id number] and what to expect when using the machine. Using CPAP every night in order to get used to it was emphasized. Patient advised to put CPAP mask on before getting into bed so as not to fall asleep without CPAP. To assist acclimation to CPAP use, it could also be used for a short time during day while reading or watching TV. The patient was instructed to call the CPAP supplier to discuss any mechanical problem that may occur. If the mask given is uncomfortable or is difficult to keep on through the night even with adjustment, contact the CPAP supplier as many will replace with another mask style if notified before 30 days. If snoring or perceives is not getting enough air or too much air from the machine, notify this office. Patient does not drink alcohol. Patient was cautioned about risks of drowsy driving until sleepiness symptoms resolve. Sleep Study - Results Type of Sleep Study: Polysomnography ([facility]) Prior sleep studies: Yes Year and Where: 2013 - [facility] Sleep ([facility]) Polysomnography/Home Sleep Study results: This nocturnal polysomnographic slaep study showed severe snoringwhich was intermittent in nature. The apnea/hypopnea.index was 46.2 and the sleep efficiency was 67%. The PLM index was 65.0. The sleep study is consistent with severe obstructive sleep apnea with significant desaturation events down to 85%. Therefore, would re commend the patient return to the sleep lab for a full-night CPAP titration study. Attaining optimal weight is recommended. The EKG showed no significant arrhythmias. Allergies and Home Medications Home medication list reviewed: Yes (no new meds) Review of Systems Review of systems same as previous: Yes (no changes) Physical Exam Heart Rate: 73 O2 Saturation: 98 Height: 5 ft 7 in Weight: 219 lb Body Mass Index: 34.2 BMI Classification: Obese Impression and Plan 1. Obstructive Sleep Apnea-Hypopnea Syndrome, severe, with lowest oxygen saturation of 85%. Obviously this is the cause of the patients symptoms of unrefreshed sleep, and excessive daytime sleepiness. Positive pressure therapy could benefit depression and anxiety. Patient has used a CPAP in the past and his ready to restart CPAP therapy. The patient will be started on nasal autoCPAP therapy with pressure set at 4-20 cmH2O. A manual titration study will be completed if unable to find optimal treatment pressure with office adjustments. Compliance guidelines also reviewed. A copy of compliance guidelines will be given for reference at check out. Because the apnea is more severe supine, I instructed to avoid sleeping supine using pillow positioning until able to start CPAP use. * Nasal auto CPAP therapy, pressure at 4-20 cm H2O. * Attempt to lose weight. * Avoid alcohol consumption near bedtime. * Avoid supine sleep until using CPAP. * The patient is again cautioned about driving until sleepiness completely resolves. * Return one month after CPAP obtained. I will assess response to therapy and compliance at that time. Counseling Topics: Weight loss health impact Visit Type: In Office Time Spent with Patient (minutes): 20 Provider Statement: I spent 100% of the Face to Face Visit with the patient with greater than 50% spent counseling the patient and coordination of care.
== END 2020-08-08 14:49 | disposition home or self-care (01) ==
LOC: SC 14:48
PROVIDERS: ATTEND Nurse Practitioner Family
DX: G47.33 Obstructive sleep apnea (adult) (pediatric) (principal); E66.9 Obesity, unspecified; Z68.34 Body mass index [BMI] 34.0-34.9, adult
CPT/HCPCS: 99212; 99213

== ENCOUNTER 2020-10-03 15:54 | Outpatient (CLI) | payer OTHER ==
--- NOTE | 2020-10-03 16:35 | SLEEP CARE CONSULTATION ---
Information from patient questionnaire entered by Selma Shahid. I have reviewed and concur with the information entered by Selma Shahid. This document represents the service I personally performed and the decisions made by me, Neena Cain ARNP. History of Present Illness Service Date and Time: 10/03/2020 1554 Previous diagnosis: Severe, Obstructive Sleep Apnea-Hypopnea Syndrome AHI: 52.3 Reason for follow up: first compliance (Set up 08/26/20) Equipment obtained from: [employer] (got new device and supplies) Mask style: Nasal (over the nose) Backup mask available: No (will keep old mask when replaced) Last cushion change: 1 month Prior sleep studies: Yes Year and Where: 2013 - [facility] Sleep ([facility]) Type of Sleep Study: Polysomnography ([facility]) HPI additional information: PETE SHAHID was diagnosed to have severe, AHI 46.2, obstructive sleep apnea- hypopnea syndrome and returned today for CPAP therapy first compliance follow- up. CPAP Compliance Data - Data Reviewed with Patient Average duration of nightly device use: 9 h 0 min Compliance rate %: 97 Current pressure setting (cmH2O): 4-20 (median 8.2, avg 11.6, max 13.4) Average residual AHI: 1.6 Subjective Patient concerns: reports: mask discomfort (nose bridge soreness from over the nose mask). denies: aerophagia, air blowing in eyes, mask leak noise, condensation in mask/hose, nasal congestion, dry mouth, nose, throat, epistaxis, other Observed to snore while using device: No Current pressure setting perceived as: too low On therapy, patient: reports: sleeping better, awakening more refreshed, being more awake and alert during the day, more rested overall. denies: drowsiness while driving Initial [place] Sleepiness Scale score: 6 (in 2020 (11 in 2013)) Current [place] Sleepiness Scale score: 8 Allergies and Home Medications Home medication list reviewed: Yes (no changes) Review of Systems Review of systems same as previous: Yes (no changes) Physical Exam Heart Rate: 77 O2 Saturation: 98 Height: 5 ft 7 in Weight: 228 lb Body Mass Index: 35.6 BMI Classification: Obese Impression and Plan 1. Obstructive Sleep Apnea-Hypopnea Syndrome, severe, with good treatment compliance and good apnea control. On CPAP therapy, the patient has better sleep quality and is more rested overall. Patient has been trying to use his machine every night and is happy with the results. Patient states he has some soreness on the top of his nose from the over the nose mask. I advised him to try a larger size. He may use a Band-Aid over the sore area until it heals. He should keep the mask cleaned well daily to reduce chance of infection. If it should not clear up he may try to use a nasal cushion mask but just goes under his nose. Patient voiced understanding. The patients pressure will be changed to autoCPAP 8-13 cmH20 to reflect pressures being used. Patient advised to contact me if pressure change is uncomfortable so that it can be adjusted. Goals for apnea control discussed. Patient's apnea severity and rationale for treatment to reduce apnea, improve sleep quality and reduce cardiovascular and cerebrovascular events was reviewed. I also reviewed the benefit of consistent device use of CPAP for depression/anxiety. Patient was encouraged to lose weight for their overall health and to reduce apneas. * Change [auto] CPAP pressure to [8-13] cmH2O * Notify me if snoring with mask or feeling that the pressure is too much or too little * Attempt to lose weight * Call this office if any problems using CPAP * Return for follow up in 1-2 months, or sooner if concerns arise Counseling Topics: Spare mask, Weight loss health impact Visit Type: In Office Time Spent with Patient (minutes): 14 Provider Statement: I spent 100% of the Face to Face Visit with the patient with greater than 50% spent counseling the patient and coordination of care.
== END 2020-10-03 15:55 | disposition home or self-care (01) ==
LOC: SC 15:54
PROVIDERS: ATTEND Nurse Practitioner Family
DX: G47.33 Obstructive sleep apnea (adult) (pediatric) (principal); E66.9 Obesity, unspecified; Z68.35 Body mass index [BMI] 35.0-35.9, adult
CPT/HCPCS: 99212

== ENCOUNTER 2020-11-28 15:57 | Outpatient (CLI) | payer OTHER ==
[2020-11-28 16:34] VITALS: BP 140/92
--- NOTE | 2020-11-28 16:34 | SLEEP CARE CONSULTATION ---
Information from patient questionnaire entered by Selma Shahid. I have reviewed and concur with the information entered by Selma Shahid. This document represents the service I personally performed and the decisions made by , Neena Cain ARNP. History of Present Illness Service Date and Time: 11/28/2020 1557 Previous diagnosis: Severe, Obstructive Sleep Apnea-Hypopnea Syndrome AHI: 52.3 Reason for follow up: other (2-month followup - pressure change) Equipment type: CPAP Equipment obtained from: [employer] (getting supplies as needed) Mask style: Nasal Backup mask available: No (will keep old mask when replaced) Last cushion change: 2 months Prior sleep studies: Yes Year and Where: 2013 - [facility] Sleep ([facility]) Type of Sleep Study: Polysomnography ([facility]) HPI additional information: PETE SHAHID was diagnosed to have severe, AHI 52.3, obstructive sleep apnea- hypopnea syndrome and returned today for CPAP therapy 2 month with pressure change follow-up. CPAP Compliance Data - Data Reviewed with Patient Average duration of nightly device use: 9 h 19 min Compliance rate %: 98 Current pressure setting (cmH2O): 8-13 (95% 11.7) Average residual AHI: 1.4 Subjective Patient concerns: reports: mask discomfort, other (Headache). denies: aerophagia, air blowing in eyes, mask leak noise, condensation in mask/hose, nasal congestion, dry mouth, nose, throat, epistaxis Observed to snore while using device: No Current pressure setting perceived as: comfortable On therapy, patient: reports: sleeping better, awakening more refreshed, being more awake and alert during the day, more rested overall. denies: drowsiness while driving Initial [place] Sleepiness Scale score: 6 (in 2020 (11 in 2013)) Current [place] Sleepiness Scale score: 9 Allergies and Home Medications Home medication list reviewed: Yes (no changes) Review of Systems Review of systems same as previous: Yes (no changes) Physical Exam Blood Pressure: 140/92 Cuff size: long Heart Rate: 77 O2 Saturation: 98 Height: 5 ft 7 in Weight: 224 lb Weight change since last visit: 4 lb loss Body Mass Index: 35.0 BMI Classification: Obese Impression and Plan 1. Obstructive Sleep Apnea-Hypopnea Syndrome, severe, with good treatment compliance and good apnea control. On CPAP therapy, the patient has better sleep quality and is more rested overall. Patient has had a little bit of bloating feeling occasionally in the morning and some headaches. I will adjust his pressure to 8 -12 cm H2O. Patient states the current pressure setting is comfortable and he is not snoring when he uses his CPAP. Patient has lost about 4 pounds by watching what he is eating. I encouraged him to continue to try to lose weight for his overall health and to reduce apneas. Patient's apnea s everity and rationale for treatment to reduce apnea, improve sleep quality and reduce cardiovascular and cerebrovascular events was reviewed. I also reviewed the benefit of consistent device use of CPAP for depression and anxiety. * Change auto CPAP pressure to 8-12 cmH2O * Notify me if snoring with mask or feeling that the pressure is too much or too little * Continue to try to lose weight * Call this office if any problems using CPAP * Return for follow up in 3 months, or sooner if concerns arise Counseling Topics: Spare mask, Weight loss health impact Visit Type: In Office Time Spent with Patient (minutes): 18 Provider Statement: I spent 100% of the Face to Face Visit with the patient with greater than 50% spent counseling the patient and coordination of care.
== END 2020-11-28 15:58 | disposition home or self-care (01) ==
LOC: SC 15:57
PROVIDERS: ATTEND Nurse Practitioner Family
DX: G47.33 Obstructive sleep apnea (adult) (pediatric) (principal); E66.9 Obesity, unspecified; Z68.35 Body mass index [BMI] 35.0-35.9, adult
CPT/HCPCS: 99212

== ENCOUNTER 2020-12-25 15:40 | Emergency (ER) | payer OTHER ==
--- NOTE | 2020-12-25 15:55 | ED Physician Documentation ---
PD HPI FOCAL NEURO - Stated complaint Stated Complaint: RT HAND NUMBNESS - History obtained from History obtained from: Patient - Additional information Additional information: 55-year-old gentleman presents by ambulance for evaluation of a locked trigger finger and ongoing neurologic symptoms. He has a history of TIA and was intubated for altered mental status of unclear etiology a year ago. Subsequently has had a thorough work-up with neurology consultation including per his description CT, MRI, EEG without any positive findings. Has had ongoing issues with numbness in the right arm. Today he was sitting at his desk and felt a flush like blood flowing into his right arm and the numbness went away for a time and then came back. It is associated with a locked trigger finger of the right middle finger. He has ongoing but not acute headaches. Review of Systems Constitutional: denies: Fever, Chills Nose: denies: Rhinorrhea / runny nose, Congestion Respiratory: denies: Dyspnea, Cough GI: denies: Abdominal Pain, Nausea, Vomiting PD PAST MEDICAL HISTORY - Past Medical History Cardiovascular: Hypertension Respiratory: None Endocrine/Autoimmune: None GI: GERD : Kidney stones HEENT: None Psych: Depression Musculoskeletal: None Derm: None - Past Surgical History Past Surgical History: Yes - Present Medications Home Medications: Ambulatory Orders Medication Instructions Recorded Confirmed Alfuzosin HCl [Alfuzosin HCl ER] 10 mg PO QPM 10/10/16 01/05/20 Dextroamphetamine/Amphetamine 1 tab PO DAILY 10/10/16 01/04/20 [Adderall 30 mg Tablet] Omeprazole [PriLOSEC] 40 mg PO QPM 10/10/16 01/05/20 Eszopiclone [Lunesta] 3 mg PO QPM PRN 01/04/20 01/04/20 Oxybutynin Chloride [Ditropan Xl] 5 mg PO QPM 01/04/20 01/05/20 Propranolol ER [Inderal LA] 80 mg PO DAILY 01/04/20 01/04/20 DULoxetine [Cymbalta] 90 mg PO DAILY 01/05/20 01/05/20 lamoTRIgine [Lamictal] 400 mg PO QPM 01/05/20 01/05/20 - Allergies Allergies/Adverse Reactions: Allergies Allergy/AdvReac Type Severity Reaction Status Date / Time No Known Drug Allergies Allergy Verified 10/10/16 20:28 - Social History Does the pt smoke?: No Smoking Status: Never smoker Does the pt drink ETOH?: No Does the pt have substance abuse?: No - Immunizations Immunizations are current?: Yes - POLST Patient has POLST: No PD ED PE NORMAL - Vitals Vital signs reviewed: Yes - General General: Alert and oriented X 3, No acute distress - HEENT HEENT: PERRL, EOMI - Neck Neck: Supple, no meningeal sign, No bony TTP - Cardiac Cardiac: RRR, No murmur - Respiratory Respiratory: No respiratory distress, Clear bilaterally - Abdomen Abdomen: Non tender - Extremities Extremities: Other (He has a locked trigger finger which was easily reduced of the right middle finger. He has normal pulses and capillary refill in the right hand.) - Neuro Neuro: Alert and oriented X 3, No motor deficit, No sensory deficit, Normal speech Eye Opening: Spontaneous Motor: Obeys Commands Verbal: Oriented GCS Score: 15 NIHSS - Time Time: 15:50 - Level of Consciousness Level of consciousness: (0) Alert, Keenly responsive LOC Questions: (0) Answers both Q's correct LOC Commands: (0) Performs both correctly - Gaze Best Gaze: (0) Normal - Visual Visual: (0) No loss - Facial Palsy Facial Palsy: (0) Normal, symmetrical movement - Motor Arms (both separate) Motor Arm (right): (0) No drift Motor Arm (left): (0) No drift - Motor Legs (both separate) Motor Leg (right): (0) No drift - Limb Ataxia Limb Ataxia: (0) Absent - Sensory Sensory: (0) Normal - Best Language Best Language: (0) No aphasia - Dysarthria Dysarthria: (0) Normal - Extinction and Inattention (formally neg Extinction and inattention: (0) No abnormality Results - Vitals Vitals: Oxygen O2 Source Room air PD MEDICAL DECISION MAKING - ED course ED course: 55-year-old gentleman has an ongoing neurologic issue which is not acutely worse and has normal exam here. He also had a locked trigger finger of the right middle finger and discussed need for hand surgery follow-up for that. Departure - Departure Disposition: 01 Home, Self Care Clinical Impression: Numbness of right hand Trigger finger of right hand Qualifiers: Trigger finger location: middle finger Qualified Code(s): M65.331 - Trigger finger, right middle finger Condition: Good Record reviewed to determine appropriate education?: Yes Instructions: Trigger Finger Follow-Up: Pablito Walls MD [Physician No Access] - Comments: With the exception of the trigger finger, your examination is normal and it sounds like you have had a thorough work-up on your ongoing neurologic symptoms. Follow-up with your primary care for further evaluation and treatment. For the trigger finger it is definitely worth her while to follow-up with a hand specialist. The closest is in [place] and his contact information is listed on this form. I would call for an appointment. Return for new or worsening symptoms.
[2020-12-25 16:09] VITALS: BP 153/81
== END 2020-12-25 16:15 | disposition home or self-care (01) ==
LOC: EDUNIT# → ED 15:40
DX: M65.331 Trigger finger, right middle finger (principal); Z86.73 Personal history of transient ischemic attack (TIA), and cerebral infarction without residual deficits
CPT/HCPCS: 99282; 99283

== ENCOUNTER 2021-03-01 14:53 | Outpatient (CLI) | payer OTHER ==
[2021-03-01 15:33] VITALS: BP 139/85
--- NOTE | 2021-03-01 15:33 | SLEEP CARE CONSULTATION ---
Information from patient questionnaire entered by Nedra Marmolejo MA. I have reviewed and concur with the information entered by Nedra Marmolejo MA. This document represents the service I personally performed and the decisions made by , Neena Cain ARNP. History of Present Illness Service Date and Time: 03/01/2021 1453 Previous diagnosis: Severe, Obstructive Sleep Apnea-Hypopnea Syndrome AHI: 52.3 Reason for follow up: three month (PRESSURE CHANGE) Equipment type: CPAP Equipment obtained from: [employer] (getting ready to order more supplies) Mask style: Full face Backup mask available: Yes (old mask) Last cushion change: 2 months Prior sleep studies: Yes Year and Where: 2013 - [facility] Sleep ([facility]) Type of Sleep Study: Polysomnography ([facility] Sleep) HPI additional information: PETE VELA was diagnosed to have severe, AHI 52.3, obstructive sleep apnea- hypopnea syndrome and returned today for CPAP therapy three month with pressure change follow-up. Sleep Study - Results Type of Sleep Study: Polysomnography ([facility] Sleep) Prior sleep studies: Yes Year and Where: 2013 - [facility] Sleep ([facility]) CPAP Compliance Data - Data Reviewed with Patient Average duration of nightly device use: 8 HOURS 45 MINUTES Compliance rate %: 97 Current pressure setting (cmH2O): 8-12 Average residual AHI: 1.5 Central apnea: 1.1 Obstructive apnea: .1 Average large leak: 1.7 Subjective Missed days of use due to: reports: other (FORGET TO PUT IT ON , ) Patient concerns: denies: aerophagia, mask discomfort, air blowing in eyes, mask leak noise, condensation in mask/hose, nasal congestion, dry mouth, nose, throat, epistaxis, other Observed to snore while using device: No Current pressure setting perceived as: comfortable On therapy, patient: reports: sleeping better, awakening more refreshed, being more awake and alert during the day, more rested overall. denies: drowsiness while driving Initial [place] Sleepiness Scale score: 6 (in 2020 (11 in 2013)) Current [place] Sleepiness Scale score: 6 (2021) Allergies and Home Medications Known drug allergies: No Drug allergies reviewed: Yes Home medication list reviewed: Yes (Amlodipine for Htn (stopped adderall)) Review of Systems Review of systems same as previous: Yes (no changes) Physical Exam Vital signs obtained and entered by: Maryam MARMOLEJO CMA AAPR Blood Pressure: 139/85 (RIGHT , PULSE 72) Cuff size: wrist Heart Rate: 67 O2 Saturation: 98 (WITH PAPER MASK) Height: 5 ft 7 in Weight: 221 lb (WITH CLOTHES , SHOES) Weight change since last visit: 3 lb loss Body Mass Index: 34.6 BMI Classification: Obese Impression and Plan 1. Obstructive Sleep Apnea-Hypopnea Syndrome, severe, with good treatment compliance and good apnea control. On CPAP therapy, the patient has better sleep quality and is more rested overall. Patient is very satisfied with current CPAP therapy. He has significant improvement of his sleep apnea. His current mask is comfortable without issues. Patient's apnea severity and rationale for treatment to reduce apnea, improve sleep quality and reduce cardiovascular and cerebrovascular events was reviewed. I also reviewed the benefit of consistent device use of CPAP for depression/anxiety. Patient has lost weight. Currently patients BMI is 34.6. Obesity increases the risk of apnea, CPAP pressure requirements and overall health risks especially cardiovascular and diabetes. Thus patient is advised to continue to lose weight. Weight loss can be done with reducing portion size, reducing refined foods and balancing content with vegetables, fruit and whole grain foods. In addition, patient encouraged to get regular exercise. The patient's CPAP pressure range should accommodate some weight loss. Symptoms to report for additional pressure adjustment discussed. Patient was encouraged to lose weight for their overall health and to reduce apneas. * Continue auto CPAP pressure at 8-12 cmH2O * Notify me if snoring with mask or feeling that the pressure is too much or too little * Attempt to lose weight * Call this office if any problems using CPAP * Return for follow up in 6 months, or sooner if concerns arise Counseling Topics: Spare mask, Weight loss health impact Visit Type: In Office Time Spent with Patient (minutes): 20 Provider Statement: I spent 100% of the Face to Face Visit with the patient with greater than 50% spent counseling the patient and coordination of care.
== END 2021-03-01 14:54 | disposition home or self-care (01) ==
LOC: SC 14:53
PROVIDERS: ATTEND Nurse Practitioner Family
DX: G47.33 Obstructive sleep apnea (adult) (pediatric) (principal); E66.9 Obesity, unspecified; Z68.34 Body mass index [BMI] 34.0-34.9, adult
CPT/HCPCS: 99212; 99213

== ENCOUNTER 2021-10-18 14:43 | Outpatient (CLI) | payer OTHER ==
--- NOTE | 2021-10-18 15:12 | SLEEP CARE CONSULTATION ---
Information from patient questionnaire entered by Magi Pemberton. I have reviewed and concur with the information entered by Magi Pemberton. This document represents the service I personally performed and the decisions made by , Neena Cain ARNP. History of Present Illness Service Date and Time: 10/18/2021 1443 Previous diagnosis: Severe, Obstructive Sleep Apnea-Hypopnea Syndrome AHI: 52.3 Reason for follow up: other (8 MONTH F/U, TRANSFER DME, RESMED) Equipment type: CPAP Equipment obtained from: [employer] (not happy with service and wants to change) Mask style: Full face Backup mask available: No (needing supplies) Last cushion change: April Prior sleep studies: Yes Year and Where: 2013 - [facility] ([facility]) Type of Sleep Study: Polysomnography ([facility]) HPI additional information: PETE VELA was diagnosed to have severe, AHI 52.3, obstructive sleep apnea- hypopnea syndrome and returned today for CPAP therapy eight month follow-up. Sleep Study - Results Type of Sleep Study: Polysomnography ([facility]) Prior sleep studies: Yes Year and Where: 2013 - [facility] ([facility]) CPAP Compliance Data - Data Reviewed with Patient Average duration of nightly device use: 7 hours, 22 minutes Compliance rate %: 63 (03/24/21 to 09/20/21; 125/180 days used) Current pressure setting (cmH2O): 8-12 Average residual AHI: 4.2 Compliance data discussion: He had difficulty with the DME company and stopped using his device thinking he would need to return it. He has used it sporadically. Subjective Missed days of use due to: reports: other (dissatisfied with DME) Patient concerns: denies: aerophagia, mask discomfort, air blowing in eyes, mask leak noise, condensation in mask/hose, nasal congestion, dry mouth, nose, throat, epistaxis, other Observed to snore while using device: No Current pressure setting perceived as: comfortable On therapy, patient: reports: sleeping better, awakening more refreshed, being more awake and alert during the day, more rested overall. denies: drowsiness while driving Initial [place] Sleepiness Scale score: 6 (in 2020 (11 in 2013)) Current [place] Sleepiness Scale score: 7 (10/18/21) Allergies and Home Medications Drug allergies reviewed: Yes (NKDA) Home medication list reviewed: Yes (Amlodipine 10 mg daily) Allergy and home medication list: Allergies No Known Drug Allergies Allergy (Verified 12/25/20 16:05) Review of Systems Review of systems same as previous: No (Right Carpal Tunnel sx 06/27/21 c Rt middle locked finger) Physical Exam Vital signs obtained and entered by: TREVOR ORTIZ Blood Pressure: 126/76 (LEFT ARM ) Cuff size: regular Heart Rate: 85 O2 Saturation: 95 Height: 5 ft 7 in Weight: 225 lb Body Mass Index: 35.2 BMI Classification: Obese Impression and Plan 1. Obstructive Sleep Apnea-Hypopnea Syndrome, severe, with fair treatment compliance and good apnea control. On CPAP therapy, the patient has better sleep quality and is more rested overall. Patient is not happy with current DME in [place]. He states when trying to deal with them he felt he was misled and was unable to resolve issues with billing and supplies. He got frustrated and stopped using the CPAP regularly a couple of months ago. Prior to this, he was using it with good compliance. His 180-day compliance is still fair at 63%. 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 He comes in asking how to do this and to be transferred to a new DME company. He has had this machine over a year so it is probably paid off. I will transfer him to a new DME supplier. I will also update his supplies and have him come back in for a compliance visit in 1 to 2 months. He voiced understanding and agreement with this plan of care. Patient's apnea severity and rationale for treatment to reduce apnea, improve sleep quality and reduce cardiovascular and cerebrovascular events was reviewed. I also reviewed the benefit of consistent device use of CPAP for depression/anxiety. 2. Obesity, unspecified. Currently patients BMI is 35.2. Obesity increases the risk of apnea, CPAP pressure requirements and overall health risks especially cardiovascular and diabetes. Thus patient is advised to try to lose weight. * Continue auto CPAP pressure at 8-12 cmH2O * Transfer DME * Update supplies * Notify me if snoring with mask or feeling that the pressure is too much or too little * Attempt to lose weight * Call this office if any problems using CPAP * Return for follow up in 1-2 months, or sooner if concerns arise Counseling Topics: Spare mask, Weight loss health impact Visit Type: In Office Time Spent with Patient (minutes): 22 Provider Statement: I spent 100% of the Face to Face Visit with the patient with greater than 50% spent counseling the patient and coordination of care.
[2021-10-18 15:13] VITALS: BP 126/76
== END 2021-10-18 14:44 | disposition home or self-care (01) ==
LOC: SC 14:43
PROVIDERS: ATTEND Nurse Practitioner Family
DX: G47.33 Obstructive sleep apnea (adult) (pediatric) (principal); E66.9 Obesity, unspecified; Z68.35 Body mass index [BMI] 35.0-35.9, adult
CPT/HCPCS: 99212; 99213

== ENCOUNTER 2021-12-28 14:40 | Outpatient (CLI) | payer OTHER ==
[2021-12-28 15:02] VITALS: BP 122/80
--- NOTE | 2021-12-28 15:02 | SLEEP CARE CONSULTATION ---
Information from patient questionnaire entered by Yaquelin Chew. I have reviewed and concur with the information entered by Yaquelin Chew. This document represents the service I personally performed and the decisions made by me, Neena Cain ARNP. History of Present Illness Service Date and Time: 12/28/2021 1440 Previous diagnosis: Severe, Obstructive Sleep Apnea-Hypopnea Syndrome AHI: 52.3 Reason for follow up: other (2MONTH F/U) Equipment type: CPAP (RESMED) Equipment obtained from: [employer] (he cannot reach out for supplies due to financial stress) Mask style: Full face Backup mask available: No (needs supplies) Prior sleep studies: Yes Year and Where: 2013 - [facility] ([facility]) Type of Sleep Study: Polysomnography ([facility]) HPI additional information: PETE VELA was diagnosed to have severe, AHI 52.3, obstructive sleep apnea- hypopnea syndrome and returned today for CPAP therapy two month follow-up. Sleep Study - Results Type of Sleep Study: Polysomnography ([facility]) Prior sleep studies: Yes Year and Where: 2013 - [facility] ([facility]) CPAP Compliance Data - Data Reviewed with Patient Average duration of nightly device use: 4 hours 17 minutes Compliance rate %: 8 ( days used) Current pressure setting (cmH2O): 8-12 Average residual AHI: 3.4 Central apnea: 2.4 Obstructive apnea: 0.6 Compliance data discussion: Unable to use CPAP due to not getting supplies. He cannot afford to get supplies at this time. Subjective Missed days of use due to: reports: family emergency (helping parents), other (unable to afford supplies) Patient concerns: denies: aerophagia, mask discomfort, air blowing in eyes, mask leak noise, condensation in mask/hose, nasal congestion, dry mouth, nose, throat, epistaxis Observed to snore while using device: No Current pressure setting perceived as: comfortable On therapy, patient: reports: sleeping better, awakening more refreshed, being more awake and alert during the day, more rested overall. denies: drowsiness while driving Initial [place] Sleepiness Scale score: 6 (in 2020 (11 in 2013)) Current [place] Sleepiness Scale score: 9 Allergies and Home Medications Drug allergies reviewed: Yes (NKDA) Home medication list reviewed: Yes (stopped Adderall) Review of Systems Review of systems same as previous: Yes (no changes) Physical Exam Vital signs obtained and entered by: Gideon Pemberton, transmitter supervisor Pressure: 122/80 (left) Cuff size: regular Heart Rate: 80 O2 Saturation: 96 Height: 5 ft 7 in Weight: 228 lb Body Mass Index: 35.6 BMI Classification: Obese Impression and Plan 1. Obstructive Sleep Apnea-Hypopnea Syndrome, severe, with poor treatment compliance and good apnea control. On CPAP therapy, the patient has better sleep quality and is more rested overall. Patient has not yet reached out to obtain supplies so that he can use his CPAP. He had an some family emergencies with his parents that he had to deal with and he also does not have the finances to afford supplies. Patient states he really wants to start using his machine again and will as soon as he is able to get supplies he needs to use it. I encouraged him to reach out to his DME as soon as able to get the supplies he needs. He voiced understanding. Patient's apnea severity and rationale for treatment to reduce apnea, improve sleep quality and reduce cardiovascular and cerebrovascular events was reviewed. I also reviewed the benefit of consistent device use of CPAP for depression/anxiety. 2. Obesity, unspecified. Currently patients BMI is 35.6. Obesity increases the risk of apnea, CPAP pressure requirements and overall health risks especially cardiovascular and diabetes. Thus patient is advised to lose weight. * Continue auto CPAP pressure at 8-12 cmH2O * Notify me if snoring with mask or feeling that the pressure is too much or too little * Attempt to lose weight * Call this office if any problems using CPAP * Return for follow up in 3 months, or sooner if concerns arise Counseling Topics: Spare mask, Weight loss health impact Visit Type: In Office Time Spent with Patient (minutes): 20 Provider Statement: I spent 100% of the Face to Face Visit with the patient with greater than 50% spent counseling the patient and coordination of care.
== END 2021-12-28 14:41 | disposition home or self-care (01) ==
LOC: SC 14:40
PROVIDERS: ATTEND Nurse Practitioner Family
DX: G47.33 Obstructive sleep apnea (adult) (pediatric) (principal); E66.9 Obesity, unspecified; Z68.35 Body mass index [BMI] 35.0-35.9, adult; Z59.89 Other problems related to housing and economic circumstances
CPT/HCPCS: 99212; 99213

== ENCOUNTER 2022-03-27 13:28 | Outpatient (CLI) | payer OTHER ==
[2022-03-27 14:03] VITALS: BP 120/68
--- NOTE | 2022-03-27 14:03 | SLEEP CARE CONSULTATION ---
Information from patient questionnaire entered by Yaquelin Chew. I have reviewed and concur with the information entered by Yaquelin Chew. This document represents the service I personally performed and the decisions made by me, Neena Cain ARNP. History of Present Illness Service Date and Time: 03/27/2022 1328 Previous diagnosis: Severe, Obstructive Sleep Apnea-Hypopnea Syndrome AHI: 52.3 Reason for follow up: three month (F/U) Equipment type: CPAP (RESMED Airsense 10, s/u 08/2020) Equipment obtained from: [employer] (getting supplies) Mask style: Full face Mask brand: Respironics (Dreamwear) Backup mask available: Yes (other mask) Last cushion change: 3 weeks+ Prior sleep studies: Yes Year and Where: 2013 - [facility] ([facility]) Type of Sleep Study: Polysomnography ([facility]) HPI additional information: PETE VELA was diagnosed to have severe, AHI 52.3, obstructive sleep apnea- hypopnea syndrome and returned today for CPAP therapy three month follow-up. Sleep Study - Results Type of Sleep Study: Polysomnography ([facility]) Prior sleep studies: Yes Year and Where: 2013 - [facility] ([facility]) CPAP Compliance Data - Data Reviewed with Patient Average duration of nightly device use: 7 hours 45 minutes Compliance rate %: 90 (30/30 days used) Current pressure setting (cmH2O): 8-12 Average residual AHI: 2.0 Central apnea: 0.9 Obstructive apnea: 0.9 Subjective Patient concerns: denies: aerophagia, mask discomfort, air blowing in eyes, mask leak noise, condensation in mask/hose, nasal congestion, dry mouth, nose, throat, epistaxis Observed to snore while using device: Yes (little bit) Current pressure setting perceived as: comfortable On therapy, patient: reports: sleeping better, awakening more refreshed, being more awake and alert during the day, more rested overall. denies: drowsiness while driving Initial [place] Sleepiness Scale score: 6 (in 2020 (11 in 2013)) Current [place] Sleepiness Scale score: 5 (03/27/22) Allergies and Home Medications Drug allergies reviewed: Yes (NKDA) Home medication list reviewed: Yes (Vitamin D) Review of Systems Review of systems same as previous: Yes (no changes) Physical Exam Vital signs obtained and entered by: YAQUELIN Larsen MA Blood Pressure: 120/68 (LEFT ARM) Cuff size: regular Heart Rate: 83 O2 Saturation: 95 Height: 5 ft 7 in Weight: 230 lb 9.6 oz Body Mass Index: 36.1 BMI Classification: Obese Impression and Plan 1. Obstructive Sleep Apnea-Hypopnea Syndrome, severe, with good treatment compliance and good apnea control. On CPAP therapy, the patient has better sleep quality and is more rested overall. Pete was able to bring his compliance up since getting the supplies that he needs. He is 90% in last 30 days. He is comfortable with his CPAP and treatment. He has significant improvement of his sleep apnea. Patient denies problems with oral dryness, nasal congestion, epistaxis, skin irritation or aerophagia. Patient's apnea severity and rationale for treatment to reduce apnea, improve sleep quality and reduce cardiovascular and cerebrovascular events was reviewed. I also reviewed the benefit of consistent device use of CPAP for depression/anxiety. 2. Obesity, unspecified. Currently patients BMI is 36.1. Obesity increases the risk of apnea, CPAP pressure requirements and overall health risks especially cardiovascular and diabetes. Thus patient is advised to lose weight. * Continue auto CPAP pressure at 8-12 cmH2O * Notify me if snoring with mask or feeling that the pressure is too much or too little * Attempt to lose weight * Call this office if any problems using CPAP * Return for follow up in 1 year, or sooner if concerns arise Counseling Topics: Spare mask, Weight loss health impact Visit Type: In Office Time Spent with Patient (minutes): 20 Provider Statement: I spent 100% of the Face to Face Visit with the patient with greater than 50% spent counseling the patient and coordination of care.
== END 2022-03-27 13:29 | disposition home or self-care (01) ==
LOC: SC 13:28
PROVIDERS: ATTEND Nurse Practitioner Family
DX: G47.33 Obstructive sleep apnea (adult) (pediatric) (principal); E66.9 Obesity, unspecified; Z68.36 Body mass index [BMI] 36.0-36.9, adult
CPT/HCPCS: 99212; 99213

== ENCOUNTER 2022-12-18 17:31 | Outpatient (CLI) | payer OTHER ==
--- NOTE | 2022-12-19 11:46 | XRAY Report ---
PROCEDURE: Knee 3 View LT INDICATIONS: OTEOARTHRITIS,KNEE,LEFT,MILD TECHNIQUE: 3 views of the knee(s) were acquired. COMPARISON: None. FINDINGS: Bones: No fractures or dislocations. No suspicious bony lesions. Tricompartmental joint space narrowing with associated osteophytosis. Soft tissues: Trace knee joint effusion. No suspicious soft tissue calcifications or masses. IMPRESSION: Mild to moderate tricompartmental osteoarthritis. Kellgren-Donny scale of osteoarthritis: 2. Reviewed by: Dequan Frazier on 12/19/2022 11:45 AM [facility] Approved by: Dequan Frazier on 12/19/2022 11:45 AM [facility] Station ID: [id number]
== END 2022-12-18 17:32 | disposition home or self-care (01) ==
LOC: DI 17:31
PROVIDERS: ATTEND Physician Assistant Medical
DX: M17.12 Unilateral primary osteoarthritis, left knee (principal)

== ENCOUNTER 2023-04-14 15:00 | Outpatient (CLI) | payer OTHER ==
[2023-04-14] MEDS: ALBUTEROL 1 PUFF INH STA (16:35)
== END 2023-04-14 15:01 | disposition home or self-care (01) ==
LOC: RT 15:00
PROVIDERS: ATTEND Nurse Practitioner Family
DX: R06.00 Dyspnea, unspecified (principal); Z86.16 Personal history of COVID-19
CPT/HCPCS: 94060; 94727; 94729